=== PATIENT | female | born 1950 ===

== ENCOUNTER 2019-06-06 08:15 | Inpatient (IN) | payer OTHER ==
[~2019-06-06] VITALS: Ht 160 cm; Wt 71.7 kg
[2019-06-06] MEDS ORDERED: DIALTIAZEM PO (10:24)
[2019-06-06] MEDS ORDERED: Lisinopril PO (10:25)
[2019-06-06] MEDS ORDERED: RELAF PO (10:25)
[2019-06-06] MEDS ORDERED: CATAPRES0.1 MG PO (10:26)
[2019-06-06] MEDS ORDERED: METFORMIN HCL500 MG PO (11:11)
[2019-06-12] MEDS ORDERED: ADULT LOW DOSE81 M1 PO (09:51)
[2019-06-12] MEDS ORDERED: ZESTRIL40 M1 PO (09:51)
[2019-06-12] MEDS ORDERED: TAZTIA XT360 M1 PO (09:52)
[2019-06-12] MEDS ORDERED: HYDROCHLOROTH12.5 MG PO (09:52)
[2019-06-12] MEDS ORDERED: NABUMETONE500 MG PO (09:55)
[2019-06-14] MEDS ORDERED: DUI500 PO (15:35)
[2019-06-14] MEDS ORDERED: ELIQUIS2.5 MG PO (15:35)
[2019-06-14] MEDS ORDERED: PERCOCET 5-3251 EACH PO (15:35)
== END 2019-06-14 19:54 | DRG 470 ==
LOC: O/R 06-12 06:20 → SURH 06-12 06:20 → O/R 06-12 08:15 → SURH 06-12 08:15
PROVIDERS: ADMIT Orthopaedic Surgery
PROC: 0MNN0ZZ Release Right Knee Bursa and Ligament, Open Approach (ICD-10-PCS; 2019-06-12)
PROC: 0SRC0J9 Replacement of Right Knee Joint with Synthetic Substitute, Cemented, Open Approach (ICD-10-PCS; principal; 2019-06-12 15:00)
DX: M17.11 Unilateral primary osteoarthritis, right knee (principal); D62 Acute posthemorrhagic anemia; M22.11 Recurrent subluxation of patella, right knee; I10 Essential (primary) hypertension; E11.9 Type 2 diabetes mellitus without complications; Z79.4 Long term (current) use of insulin